=== PATIENT | male | born 1995 | race Caucasian/White ===

== ENCOUNTER 2020-05-30 01:42 | Emergency (ER) | payer MEDICAID ==
[~2020-05-30] VITALS: Ht 165.1 cm; Wt 73.5 kg
[2020-05-30 02:00] VITALS: BP 135/80
--- NOTE | 2020-05-30 02:04 | Emergency Room Report ---
History of Present Illness General Chief Complaint: General Complaint Source: Patient Present Illness HPI Disclaimer: Please note that this report is being documented using [employer] technology. This can lead to erroneous entry secondary to incorrect interpretation by the dictating instrument. HPI: 25-year-old transgendered male with history of thalassemia presents for evaluation of near syncopal episode. The patient states he was going to sleep when he felt "heavy" in his body and that he may pass out. He felt lightheaded and tingling in his fingers. Lasted several minutes and then resolved. He is concerned he may have an infection from his recent breast reduction surgery performed in [place] 1 month ago. He stated noticed some purulent material over his surgical site right on his left breast earlier this morning. No further purulence. No surrounding erythema. Denies fever, chills, chest pain, palpitations, nausea, vomiting, diarrhea. He has a history of thalassemia but has never received a blood transfusion. Patient also injected testosterone yesterday. He has done this weekly for the past 1.5 years and has never had a similar reaction. Symptoms are now resolved and he has no complaints currently. Requesting medical evaluation. PMH: Thalassemia PSH: Breast reduction Allergies: Denies Social Hx: Denies drug, alcohol or tobacco use Allergies: Coded Allergies: No Known Allergies (Unverified , 05/30/20) COVID-19 Screening Contact w/high risk pt: No Experienced COVID-19 symptoms?: Yes COVID-19 Testing performed ADAPTIVE PHYSICAL EDUCATOR: No COVID-19 Screening: Negative COVID-19 Nursing Documentation-PMH Past Medical History: No History, Except For Review of Systems All Other Systems: negative except mentioned in HPI Physical Exam Vital Signs Date Time Temp Pulse Resp B/P (MAP) Pulse Ox O2 Delivery O2 Flow Rate FiO2 05/30/20 01:45 98.2 98 18 144/83 (103) 100 Room Air General: Awake and alert, no acute distress HEENT: NC/AT. EOMI. Chest wall: Incision scars of breast reduction are clean dry and intact. No purulence. Mild tenderness on the right side but no palpable mass, no fluctuance, no erythema, no edema. Cardiovascular: RRR. S1 and S2 normal. No murmur appreciated Resp: Normal work of breathing. No cough, wheezing or crackles appreciated Abdomen: Abdomen is soft, nondistended. Nontender Skin: Intact. Surgical scars over the chest wall are clean dry and intact. Mild tenderness on the right side but no palpable mass, no fluctuance, no erythema, no edema. MSK: Normal tone and bulk. Moving all extremities. No obvious deformity. Neuro: Awake and alert. Mentating appropriately. Medical Decision Making Diagnostic Impression: Primary Impression: Near syncope Additional Impression: UTI (urinary tract infection) ER Course This a 25-year-old transgender male presenting for evaluation of near syncopal episode. Differential includes is not limited to anemia, dehydration, infection. Labs were obtained showing adequate hemoglobin at 14.9. EKG nonischemic. Chemistry and troponin unremarkable. Urinalysis shows 3+ leukocyte esterase and 5-10 white cells though only few bacteria. May be an early urinary tract infection or contaminant. Patient also stated that he had a purulent drainage from the surgical site though this appears to have stopped and I see no sign of major secondary deep space infection. Will give the patient a dose of Rocephin in the ED and discharged on Keflex. He is stable for outpatient follow-up. Follow-up with PMD and return precautions were discussed with patient. Verbalized understanding with and agreement this treatment plan. Laboratory Tests Test 05/30/20 02:00 05/30/20 02:12 White Blood Count 8.3 K/UL (4.8-10.8) Red Blood Count 6.68 M/UL (4.70-6.10) H Hemoglobin 14.9 G/DL (14.2-18.0) Hematocrit 50.0 % (42.0-52.0) Mean Corpuscular Volume 75 FL (80-99) L Mean Corpuscular Hemoglobin 22.4 PG (27.0-31.0) L Mean Corpuscular Hemoglobin Concent 29.9 G/DL (32.0-36.0) L Red Cell Distribution Width 12.2 % (11.6-14.8) Platelet Count 150 K/UL (150-450) Mean Platelet Volume 9.7 FL (6.5-10.1) Neutrophils (%) (Auto) 45.6 % (45.0-75.0) Lymphocytes (%) (Auto) 43.0 % (20.0-45.0) Monocytes (%) (Auto) 8.6 % (1.0-10.0) Eosinophils (%) (Auto) 2.0 % (0.0-3.0) Basophils (%) (Auto) 0.8 % (0.0-2.0) Sodium Level 141 MMOL/L (136-145) Potassium Level 3.7 MMOL/L (3.5-5.1) Chloride Level 102 MMOL/L (98-107) Carbon Dioxide Level 29 MMOL/L (21-32) Anion Gap 10 mmol/L (5-15) Blood Urea Nitrogen 11 mg/dL (7-18) Creatinine 0.8 MG/DL (0.55-1.30) Estimated Glomerular Filtration Rate > 60 mL/min (>60) Glucose Level 106 MG/DL (74-106) Calcium Level 8.8 MG/DL (8.5-10.1) Troponin I 0.000 ng/mL (0.000-0.056) Urine Color Yellow Urine Appearance Clear Urine pH 7 (4.5-8.0) Urine Specific [place] 1.010 (1.005-1.035) Urine Protein Negative (NEGATIVE) Urine Glucose (UA) Negative (NEGATIVE) Urine Ketones Negative (NEGATIVE) Urine Blood Negative (NEGATIVE) Urine Nitrite Negative (NEGATIVE) Urine Bilirubin Negative (NEGATIVE) Urine Urobilinogen Normal MG/DL (0.0-1.0) Urine Leukocyte Esterase 3+ (NEGATIVE) H Urine RBC 0 /HPF (0 - 0) Urine WBC 5-10 /HPF (0 - 0) H Urine Squamous Epithelial Cells Few /LPF (NONE/OCC) Urine Amorphous Sediment Moderate /LPF (NONE) H Urine Bacteria Few /HPF (NONE) EKG Diagnostic Results EKG Time: 02:20 Rate: normal Rhythm: NSR ST Segments: no acute changes Other Impression Sinus rhythm, normal axis, normal intervals, no ST segment changes. Rhythm Strip Diag. Results Rhythm Strip Time: 02:20 EP Interpretation: yes Rate: 80s Rhythm: NSR, no PVC's, no ectopy Last Vital Signs Date Time Temp Pulse Resp B/P (MAP) Pulse Ox O2 Delivery O2 Flow Rate FiO2 05/30/20 01:45 98.2 98 18 144/83 (103) 100 Room Air Disposition: HOME, SELF-CARE Condition: Stable Scripts Cephalexin* (KEFLEX*) 500 Mg Capsule 500 MG ORAL EVERY 12 HOURS, #14 CAP 0 Refills Prov: Rian Guadarrama MD 05/30/20 Rian Guadarrama MD May 30, 2020 02:04
[2020-05-30 02:44] LABS: APPEARANCE,URINE CLEAR; BILIRUBIN, URINE NEGATIVE (NEGATIVE); GLUCOSE, URINE (UA) NEGATIVE (NEGATIVE); KETONES,URINE NEGATIVE (NEGATIVE); LEUKOCYTE ESTERASE ,URINE 3+ (NEGATIVE); NITRITE,URINE NEGATIVE (NEGATIVE); PH,URINE 7 (4.5-8.0); PROTEIN,URINE NEGATIVE (NEGATIVE); UROBILINOGEN,URINE NORMAL MG/DL (0.0-1.0)
[2020-05-30 02:50] LABS: COLOR,URINE YELLOW
[2020-05-30 02:51] LABS: BASOPHILS % (AUTO) 0.8 % (0.0-2.0); HEMOGLOBIN 14.9 G/DL (14.2-18.0); MEAN CORPUSCULAR VOLUME 75 FL (80-99); MONOCYTES % (AUTO) 8.6 % (1.0-10.0); NEUTROPHILS % (AUTO) 45.6 % (45.0-75.0); PLATELET COUNT 150 K/UL (150-450); RED BLOOD COUNT 6.68 M/UL (4.70-6.10); RED CELL DISTRIBUTION WIDTH 12.2 % (11.6-14.8); WHITE BLOOD COUNT 8.3 K/UL (4.8-10.8)
[2020-05-30 03:13] LABS: ANION GAP 10 mmol/L (5-15); BLOOD UREA NITROGEN 11 mg/dL (7-18); CALCIUM 8.8 MG/DL (8.5-10.1); CARBON DIOXIDE 29 MMOL/L (21-32); CHLORIDE 102 MMOL/L (98-107); CREATININE 0.8 MG/DL (0.55-1.30); POTASSIUM 3.7 MMOL/L (3.5-5.1); SODIUM 141 MMOL/L (136-145)
[2020-05-30] MEDS ORDERED: CEPHALEXIN500 MG ORAL (03:19)
[2020-05-30] MEDS ORDERED: cefTRIAXone 1 GM in NS 55 ML IVPB ONE (03:30)
[2020-05-30 03:45] VITALS: BP 132/75
== END 2020-05-30 03:45 | disposition home or self-care (01) ==
LOC: EMR 02:04
DX: R55 Syncope and collapse (principal); N39.0 Urinary tract infection, site not specified
CPT/HCPCS: 36415; 80048; 81003; 84484; 85025; 93005; 96365; J0696; Z7502; 99284